=== PATIENT | male | born 1985 | race Two or more races ===

== ENCOUNTER 2020-02-28 10:12 | Emergency (ER) | payer MEDICAID ==
[~2020-02-28] VITALS: Ht 175.3 cm; Wt 66.6 kg
[2020-02-28 10:31] VITALS: BP 132/85
== END 2020-02-28 12:27 | disposition left against medical advice (07) ==
LOC: ER 10:12
DX: Z53.21 Procedure and treatment not carried out due to patient leaving prior to being seen by health care provider (principal)